=== PATIENT | female | born 1990 | race Caucasian/White ===

== ENCOUNTER → 2018-12-03 | Outpatient (CLI) | payer OTHER | LOC: LAB FS 13:30 | PROVIDERS: ATTEND Family Medicine | DX: O26.851 Spotting complicating pregnancy, first trimester (principal); Z3A.00 Weeks of gestation of pregnancy not specified | CPT/HCPCS: 36415; 84144; 84702 ==

== ENCOUNTER → 2019-03-04 | Outpatient (CLI) | payer OTHER | LOC: LAB FS 14:07 | PROVIDERS: ATTEND Family Medicine | DX: N91.2 Amenorrhea, unspecified (principal) | CPT/HCPCS: 36415; 84702 ==

== ENCOUNTER → 2019-05-31 | Outpatient (CLI) | payer OTHER ==
[2019-05-31 15:32] LABS: HEMATOCRIT 38 % (35-52); HEMOGLOBIN 12.7 G/DL (11.5-16.0); MEAN CORPUSCULAR HEMOGLOBIN 28 PG (25-34); WHITE BLOOD COUNT 12.8 10^3/uL (4.3-11.0)
[2019-05-31 15:33] LABS: MEAN CORPUSCULAR HGB CONC 33 G/DL (32-36); MEAN CORPUSCULAR VOLUME 86 FL (80-99); MEAN PLATELET VOLUME 9.4 FL (7.4-10.4); NEUTROPHILS % (AUTO) 69 % (42-75); PLATELET COUNT 322 10^3/uL (130-400); RED CELL DISTRIBUTION WIDTH 12.9 % (10.0-14.5)
[2019-05-31 15:34] LABS: BASOPHILS # (AUTO) 0.1 10^3/uL (0.0-0.1); BASOPHILS % (AUTO) 0 % (0-10); EOSINOPHILS # (AUTO) 0.2 10^3/uL (0.0-0.3); EOSINOPHILS % (AUTO) 2 % (0-10); LYMPHOCYTES # (AUTO) 2.7 X 10^3 (1.0-4.0); LYMPHOCYTES % (AUTO) 21 % (12-44); MONOCYTES % (AUTO) 8 % (0-12); NEUTROPHILS # (AUTO) 8.8 X 10^3 (1.8-7.8)
== END ==
LOC: LAB FS 15:07
PROVIDERS: ATTEND Family Medicine
DX: Z34.80 Encounter for supervision of other normal pregnancy, unspecified trimester (principal)
CPT/HCPCS: 36415; 80055; 86703; 87088

== ENCOUNTER → 2019-07-01 | Outpatient (CLI) | payer OTHER | LOC: LAB FS 08:10 | PROVIDERS: ATTEND Family Medicine | DX: Z34.80 Encounter for supervision of other normal pregnancy, unspecified trimester (principal) | CPT/HCPCS: 87491; 87591 ==

== ENCOUNTER → 2019-07-26 | Outpatient (CLI) | payer OTHER | LOC: LAB FS 12:59 | PROVIDERS: ATTEND Family Medicine | DX: Z34.82 Encounter for supervision of other normal pregnancy, second trimester (principal); Z3A.00 Weeks of gestation of pregnancy not specified | CPT/HCPCS: 36415; 82105; 84702; 86336 ==

== ENCOUNTER → 2019-10-17 | Outpatient (CLI) | payer OTHER ==
[2019-10-17 10:48] LABS: HEMATOCRIT 35 % (35-52); HEMOGLOBIN 11.5 G/DL (11.5-16.0); MEAN CORPUSCULAR HEMOGLOBIN 29 PG (25-34); MEAN CORPUSCULAR HGB CONC 33 G/DL (32-36); MEAN CORPUSCULAR VOLUME 88 FL (80-99); MEAN PLATELET VOLUME 9.9 FL (7.4-10.4); PLATELET COUNT 306 10^3/uL (130-400); RED CELL DISTRIBUTION WIDTH 13.7 % (10.0-14.5)
[2019-10-17 10:49] LABS: BASOPHILS # (AUTO) 0.1 10^3/uL (0.0-0.1); BASOPHILS % (AUTO) 1 % (0-10); EOSINOPHILS # (AUTO) 0.2 10^3/uL (0.0-0.3); EOSINOPHILS % (AUTO) 1 % (0-10); LYMPHOCYTES # (AUTO) 1.6 X 10^3 (1.0-4.0); LYMPHOCYTES % (AUTO) 14 % (12-44); MONOCYTES # (AUTO) 0.7 X 10^3 (0.0-1.0); MONOCYTES % (AUTO) 6 % (0-12); NEUTROPHILS # (AUTO) 8.6 X 10^3 (1.8-7.8); NEUTROPHILS % (AUTO) 78 % (42-75)
== END ==
LOC: LAB FS 09:02
PROVIDERS: ATTEND Family Medicine
DX: Z34.80 Encounter for supervision of other normal pregnancy, unspecified trimester (principal)
CPT/HCPCS: 36415; 82950; 85025; 86780

== ENCOUNTER 2019-12-30 05:35 | Outpatient (RCR) | payer OTHER ==
[~2019-12-30] VITALS: Ht 154.9 cm; Wt 85.0 kg
== END 2019-12-30 15:46 | disposition home or self-care (01) ==
LOC: PREOP 05:35 → EDSTATUS 10:00 → PREOP 15:46
PROVIDERS: ATTEND Obstetrics & Gynecology
DX: Z01.818 Encounter for other preprocedural examination (principal)

== ENCOUNTER 2020-01-06 07:13 | Inpatient (IN) | payer OTHER ==
[2020-01-06] VITALS (9 sets, daily range): BP systolic 50–120; BP diastolic 53–80
[~2020-01-06] VITALS: Ht 154.9 cm; Wt 85.7 kg
[2020-01-06] MEDS ORDERED: ceFAZolin 2 GM IV Premixed 50 ML IV ONE (07:45)
[2020-01-06] MEDS ORDERED: CITRIC ACID/SOB CIT (BICITRA) 30 ML UDC PO ONE (08:15)
[2020-01-06] MEDS ORDERED: LACTATED RINGERS 1,000 ML IV PRN ×3 (08:15→09:05)
[2020-01-06] MEDS ORDERED: CATHETER FLUSH 10 ML SYR IV PRN (08:15)
[2020-01-06] MEDS ORDERED: METOCLOPRAMIDE INJ 10 MG/2 ML (REGLAN) IV ONE (08:15)
[2020-01-06] MEDS ORDERED: OXYTOCIN PRE-MIX DRIP 500 ML IV SCH (08:22)
--- NOTE | 2020-01-06 08:29 | History & Physical-OB ---
OB - Chief Complaint & HPI Date/Time Date of Admission: Date of Admission: Jan 06, 2020 at 07:13 Date seen by a Provider: Jan 08, 2020 Time Seen by a Provider: 08:40 Chief Complaint/History OB-Reason for Admission/Chief: Section Hx : 3 Hx Para: 1 Expected Date of Delivery: Jan 11, 2020 Gestational Age in Weeks: 39 Gestational Age in Days: 2 Indication for : desires repeat Admission Nurse Assessment Rev: Yes History of Labs O pos Allergies and Home Medications Allergies Coded Allergies: No Known Drug Allergies (Unverified , 12/30/19) Home Medications No Active Prescriptions or Reported Meds Patient Home Medication List Home Medication List Reviewed: Yes OB - History Hx of Present Care: Yes Ultrasounds: Normal mid trimester US Obstetrical Complications: None Medical Complications: None Delivery History Adverse Rxn to Tranfusion: No Patient Past Medical History n/a Social History/Family History Recent Infectious Disease Expo: No Alcohol Use: Denies Use Recreational Drug Use: No OB - Admission Exam Physical Exam Vitals: Vital Signs 01/06/20 01/06/20 07:35 08:09 Temp 37.0 Pulse 115 Resp 16 B/P (MAP) 119/66 (83) Pulse Ox 100 O2 Delivery Room Air HEENT: NCAT Heart: Rhythm Normal Lungs: Clear Abdomen: Gravid Extremities: Normal Reflexes: Normal Heart Rate: 130's Accelerations: Accelerations Present Decelerations: No Decelerations Short Term Variability: Present Warp Dyeing Tender Variability: Average (6-25) Contractions on Admission: 6-10 Minutes Apart Intensity: Mild OB - Assessment/Plan/Diagnosis Assessment Assessment: section Admission Dx 29 yo @ 39 weeks Previous Admission Status: Inpatient Order (span 2 midnights) Reason for Inpatient Admission: Repeat Plan Plan: Section JAX CASE DO Jan 06, 2020 08:29
[2020-01-06] MEDS ORDERED: TETANUS,DIPTH,PERTUSS P/F (BOOSTRIX) 0.5 ML VIAL IM SCH (08:30)
[2020-01-06] MEDS ORDERED: HYDROcodone/APAP 5 MG/325 MG (LORTAB) TAB PO PRN (08:30)
[2020-01-06] MEDS ORDERED: MEASLES,MUMPS,RUBELLA 1 EA INJ SC SCH (08:30)
[2020-01-06] MEDS ORDERED: ONDANSETRON 4 MG/2 ML (SDV) Z0FRAN IVP PRN ×2 (08:30→11:45)
--- NOTE | 2020-01-06 08:30 | Discharge Inst-Women's Service ---
Discharge Inst-Women's Serv Depart Medication/Instructions New, Converted or Re-Newed RX: RX on Chart Final Diagnosis POD 2 RLTCS Problems Reviewed?: Yes Consults/Follow Up Additional Follow Up: Yes Orders/Referrals Dr. William in 7-[address] Ramirez in 6 weeks Activity Activity: Activity as Tolerated Driving Instructions: No Driving for 1 Week NO SMOKING: NO SMOKING Nothing Inside Vagina: No Douching, No [place], No Tampons Diet Discharge Diet: No Restrictions Symptoms to Report to : Bleeding Excessive, Pain Increased, Fever Over 101 Degrees F, Vaginal Bleeding Increase, Questions/Concerns For Any Problems or Questions: Contact Your Physician Skin/Wound Care Infection Signs and Symptoms: Increased Redness, Foul Odor of Wound, Increased Drainage, Skin Itchy or Has a Rash, Increased Swelling, Temperature Above 101 F Operative Area Clean and Dry: Keep Incision Clean/Dry Stitches/[place]/Dermabond: Dermabond, Care of Stitches Bathing Instructions: JAX Rolon DO Jan 06, 2020 08:30
[2020-01-06] MEDS ORDERED: DCS100C PO (08:31)
[2020-01-06] MEDS ORDERED: ACHD5005 PO (08:31)
[2020-01-06] MEDS ORDERED: IBUP-844 PO (08:31)
[2020-01-06 08:48] LABS: BASOPHILS % (AUTO) 1 % (0-10); EOSINOPHILS # (AUTO) 0.1 10^3/uL (0.0-0.3); EOSINOPHILS % (AUTO) 1 % (0-10); HEMATOCRIT 33 % (35-52); HEMOGLOBIN 10.9 g/dL (11.5-16.0); LYMPHOCYTES # (AUTO) 1.5 10^3/uL (1.0-4.0); LYMPHOCYTES % (AUTO) 17 % (12-44); MEAN CORPUSCULAR HEMOGLOBIN 28 pg (25-34); MEAN CORPUSCULAR HGB CONC 33 g/dL (32-36); MEAN CORPUSCULAR VOLUME 87 fL (80-99); MEAN PLATELET VOLUME 10.1 fL (9.0-12.2); MONOCYTES # (AUTO) 0.7 10^3/uL (0.0-1.0); MONOCYTES % (AUTO) 8 % (0-12); NEUTROPHILS # (AUTO) 6.4 10^3/uL (1.8-7.8); NEUTROPHILS % (AUTO) 73 % (42-75); PLATELET COUNT 226 10^3/uL (130-400); WHITE BLOOD COUNT 8.8 10^3/uL (4.3-11.0)
[2020-01-06] MEDS ORDERED: FAMOTIDINE 20MG/2ML IV (PEPCID) IV ONE (09:15)
[2020-01-06] MEDS ORDERED: FAMOTIDINE 20MG/2ML IV (PEPCID) ONE (09:16)
[2020-01-06] MEDS ORDERED: fentaNYL INJECTION 100 MCG/2 ML AMP ONE (09:49)
[2020-01-06] MEDS ORDERED: ROPIVACAINE 5MG/ML 30ML VIAL ONE (10:32)
[2020-01-06] MEDS ORDERED: PHENYLEPHRINE 100 MCG/ML 10 ML (ANESTHESIA) SYR ONE (10:32)
[2020-01-06] MEDS ORDERED: OXYTOCIN PRE-MIX DRIP 1,000 ML IV ONE (10:42)
[2020-01-06] MEDS ORDERED: KETOROLAC 30 MG/ML VIAL ONE (10:59)
[2020-01-06] MEDS: KETOROLAC 30 MG/ML VIAL IV SCH ×3 (11:00→23:21)
[2020-01-06] MEDS ORDERED: HYDROmorphone 2 MG/ML VIAL (DILAUDID) IV ONE (11:45)
[2020-01-06] MEDS ORDERED: CATHETER FLUSH 10 ML SYR IV SCH (14:00)
[2020-01-06] MEDS ORDERED: ACETAMINOPHEN 500 MG TAB (TYLENOL) ONE (21:35)
[2020-01-06] MEDS: ACETAMINOPHEN 500 MG TAB (TYLENOL) PO PRN (21:38)
--- NOTE | 2020-01-06 22:53 | OPERATIVE REPORT ---
DATE OF SERVICE: PREOPERATIVE DIAGNOSES: 1. A 29-year-old G3, P1 at 39 weeks and 2 days gestation. 2. Previous section. POSTOPERATIVE DIAGNOSES: 1. A 29-year-old G3, P1 at 39 weeks and 2 days gestation. 2. Previous section. PROCEDURE: Repeat low transverse section. SURGEON: Juan Diego Case DO LEAF TINNER: Dr. Bobbi Ramirez who was necessary for manipulation and retraction throughout the procedure. ANESTHESIA: Spinal. ESTIMATED BLOOD LOSS: 600 mL. URINE OUTPUT: 50 mL clear at the end of the procedure. FLUIDS: 1000 mL lactated Ringer's solution. FINDINGS: A live female weighing 7 pounds 11 ounces, Apgars of 9 and 9. Grossly normal appearing uterus, bilateral fallopian tubes and ovaries. SPECIMEN SENT: None. INDICATIONS FOR PROCEDURE: This 29-year-old female is a patient who is consulted to my office for repeat from Dr. Ramirez. She had sought her care with Dr. Ramirez and it was uncomplicated with the exception of needing to proceed with repeat after counseling the patient. In the preoperative visit and in the preoperative area, risks of the procedure was reviewed with the patient in detail including risks of bleeding, infection, damage to surrounding structures including, but not limited to bowel, bladder, ureter, kidneys, possible need for reoperation, postoperative complications that may occur, risk from anesthesia, recovery timeframe and even . After everything was discussed with the patient in detail, consent was obtained in the preoperative area, the patient was taken to the operating room. OPERATIVE REPORT IN DETAIL: Once in the operating room, spinal anesthesia was found to be adequate, she was placed in the supine position with leftward tilt and prepped and draped in normal sterile fashion. After that a timeout was performed and anesthesia was tested. Once anesthesia was found to be adequate, a Pfannenstiel skin incision was made through the previously existing scar using knife and carried down to the underlying fascia using Bovie cautery. The fascial incision extended laterally using Bovie cautery. Superior aspect of fascial incision was then grasped with Davis clamps, tented up and dissected off the underlying rectus muscles. The inferior aspect of fascial incision was then grasped with Davis clamps, tented up and dissected off the underlying rectus muscles. Rectus muscle was then dissected down the midline, which was close to the peritoneum, which I entered bluntly and extended using blunt traction. Alejo ring retractor was placed in the peritoneal incision, which offers excellent lateral sidewall retraction. I identified the lower uterine segment, which was found to be thinned out and make a low transverse incision through the vesicouterine peritoneum and bluntly dissect this off of the lower uterine segment creating a bladder flap. I then proceeded with myotomy until membranes were visualized, at which point, I extended the uterine incision laterally and superiorly using bandage scissors. Amniotomy was performed using Allis clamp. Clear fluid was noted. Infant was found in vertex presentation. With gentle fundal pressure, the infant's head was delivered through the incision where the nares and oropharynx were bulb suctioned and nuchal cord was reduced x1. Anterior and posterior shoulders were delivered. The was then brought to the operative field where the cord was doubly clamped and cut and was taken off of the operative field by Dr. Ramirez for further attendance. Cord blood was collected, 3-vessel cord with intact placenta was delivered spontaneously thereafter. IV Pitocin was initiated to facilitate uterine contraction. Uterine fundus became firmer with bimanual massage. Uterus was then exteriorized and cleared of all endometrial clots and debris. I then proceeded with closing the uterine incision using 0 Vicryl suture in running locked fashion. Second layer of imbricating 0 Monocryl was placed. Excellent hemostasis was noted after doing this. I then placed the uterus back within the pelvis and copiously irrigated the pelvis using normal saline. Once again, there was no active bleeding noted from any of my dissection planes. I placed Interceed antiadhesive over my low transverse incision. I removed the Alejo ring retractor and proceeded with closing the peritoneum using 3-0 Vicryl suture in running fashion. Rectus muscles were reapproximated using 3-0 Vicryl suture in interrupted fashion. The fascia was reapproximated using 0 Vicryl suture in running fashion and the skin reapproximated using 4-0 Monocryl in a running subcuticular. Dermabond was applied to incision and sterile dressing with adhesive white tape. The patient tolerated the procedure well and sent to recovery in stable condition. Lap and sponge counts were correct at the end of procedure. Instrument counts correct as well. Two grams of Ancef were given preoperatively for infection prophylaxis. Job ID: [id number] DocumentID: [id number] Dictated Date: 01/06/2020 11:22:46 Director Of Engineering Date: 01/06/2020 22:52:58 Dictated By: JUAN DIEGO CASE DO
[2020-01-06] MEDS: DOCUSATE SODIUM 100 MG (COLACE) CAP PO SCH (23:21)
[2020-01-07] MEDS: KETOROLAC 30 MG/ML VIAL IV SCH (05:42)
[2020-01-07 05:43] VITALS: BP 101/52
[2020-01-07 05:50] LABS: BASOPHILS # (AUTO) 0.1 10^3/uL (0.0-0.1); BASOPHILS % (AUTO) 0 % (0-10); EOSINOPHILS # (AUTO) 0.1 10^3/uL (0.0-0.3); EOSINOPHILS % (AUTO) 1 % (0-10); HEMATOCRIT 30 % (35-52); LYMPHOCYTES # (AUTO) 1.9 10^3/uL (1.0-4.0); LYMPHOCYTES % (AUTO) 14 % (12-44); MEAN CORPUSCULAR HEMOGLOBIN 29 pg (25-34); MEAN CORPUSCULAR HGB CONC 33 g/dL (32-36); MEAN CORPUSCULAR VOLUME 86 fL (80-99); MEAN PLATELET VOLUME 10.4 fL (9.0-12.2); MONOCYTES % (AUTO) 8 % (0-12); NEUTROPHILS # (AUTO) 9.9 10^3/uL (1.8-7.8); NEUTROPHILS % (AUTO) 76 % (42-75); PLATELET COUNT 218 10^3/uL (130-400)
--- NOTE | 2020-01-07 07:17 | Postpartum Progress Note ---
Note Note Day # 1 Subjective: Patient is without complaints. Ambulating, voiding. Tolerating a regular diet without nausea or vomiting. Normal lochia. Pain is well controlled with oral pain medications. Objective: Physical Exam: General - Alert and oriented, no apparent distress Abdomen - Soft, appropriately tender to palpation, non-distended, fundus firm at umbilicus Extremities - no edema, negative Tino's bilaterally Incision- c/d/i Assessment: POD 1 RLTCS Acute on chronic blood loss anemia of Plan: Routine care. Encourage breast feeding. Encourage ambulation. Ferrous sulfate supplementation. Plan for discharge tomorrow Vitals - Labs Vital Signs - I&O Vital Signs Date Time Temp Pulse Resp B/P (MAP) Pulse Ox O2 Delivery O2 Flow Rate FiO2 01/07/20 05:43 36.8 81 16 101/52 (68) 97 Room Air 01/06/20 23:20 37.0 90 16 50/59 (56) 95 Room Air 01/06/20 16:30 37.2 86 16 114/59 (77) 96 Room Air 01/06/20 12:16 36 16 120/80 (93) 98 Room Air 01/06/20 12:16 Room Air 01/06/20 12:00 36 16 105/56 (72) 98 Room Air 01/06/20 12:00 Room Air 01/06/20 11:45 36 16 112/69 (83) 97 Room Air 01/06/20 11:45 Room Air 01/06/20 11:30 Room Air 01/06/20 11:30 36 16 88/65 (73) 97 Room Air 01/06/20 11:15 Room Air 01/06/20 11:15 36 16 95/53 (67) 98 Room Air 01/06/20 08:09 37.0 115 16 100 Room Air 01/06/20 07:35 37.0 115 16 119/66 (83) 100 Room Air I & O 01/07/20 07:00 Intake Total 3250 ml Output Total 1700 ml Balance 1550 ml Labs Laboratory Tests 01/06/20 08:39: White Blood Count 8.8, Red Blood Count 3.86, Hemoglobin 10.9L, Hematocrit 33L, Mean Corpuscular Volume 87, Mean Corpuscular Hemoglobin 28, Mean Corpuscular Hemoglobin Concent 33, Red Cell Distribution Width 14.3, Platelet Count 226, Mean Platelet Volume 10.1, Immature Granulocyte % (Auto) 1, Neutrophils (%) (Auto) 73, Lymphocytes (%) (Auto) 17, Monocytes (%) (Auto) 8, Eosinophils (%) (Auto) 1, Basophils (%) (Auto) 1, Neutrophils # (Auto) 6.4, Lymphocytes # (Auto) 1.5, Monocytes # (Auto) 0.7, Eosinophils # (Auto) 0.1, Basophils # (Auto) 0.0, Immature Granulocyte # (Auto) 0.1 01/07/20 05:37: White Blood Count 13.0H, Red Blood Count 3.49L, Hemoglobin 10.0L, Hematocrit 30L , Mean Corpuscular Volume 86, Mean Corpuscular Hemoglobin 29, Mean Corpuscular Hemoglobin Concent 33, Red Cell Distribution Width 14.0, Platelet Count 218, Mean Platelet Volume 10.4, Immature Granulocyte % (Auto) 1, Neutrophils (%) (Auto) 76H, Lymphocytes (%) (Auto) 14, Monocytes (%) (Auto) 8, Eosinophils (%) (Auto) 1, Basophils (%) (Auto) 0, Neutrophils # (Auto) 9.9H, Lymphocytes # (Auto) 1.9, Monocytes # (Auto) 1.0, Eosinophils # (Auto) 0.1, Basophils # (Auto) 0.1, Immature Granulocyte # (Auto) 0.1 JAX CASE DO Jan 07, 2020 07:17
--- NOTE | 2020-01-07 07:57 | Anesthesia-Regional Post-Op ---
Regional Patient Condition Mental Status: Alert, Oriented x3 Circulation: Same as Pre-Op Headache: Absent Sensation: Full Recovery Motor Block: Absent Post Op Complications Complications None Follow Up Care/Instructions Patient Instructions None needed. Anesthesia/Patient Condition Patient is doing well, no complaints, stable vital signs, no apparent adverse anesthesia problems. No complications reported per nursing. YAMILA PERKINS CRNA Jan 07, 2020 07:56
[2020-01-07 08:00] VITALS: BP 108/59
--- NOTE | 2020-01-07 08:00 | NUR ---
A.M. ASSESSMENT COMPLETED. VSS. CARING FOR IN ROOM. GOOD INTERACTION NOTED.
[2020-01-07] MEDS ORDERED: IBUPROFEN 600 MG (MOTRIN) TAB PO SCH (08:30)
[2020-01-07] MEDS: DOCUSATE SODIUM 100 MG (COLACE) CAP PO SCH ×2 (08:51→19:19)
--- NOTE | 2020-01-07 11:00 | NUR ---
HAS BEEN IN TO ASSIST PRN WITH FEEDINGS.
[2020-01-07 12:10] VITALS: BP 115/56
[2020-01-07] MEDS: IBUPROFEN 600 MG (MOTRIN) TAB PO SCH ×2 (12:16→19:19)
[2020-01-07] MEDS: ACETAMINOPHEN 500 MG TAB (TYLENOL) PO PRN ×2 (12:17→19:47)
--- NOTE | 2020-01-07 13:00 | NUR ---
AMBULATING IN THE WEAVER WITH S.O. PUSHING IN CRIB. MOVES WELL.
[2020-01-07 16:45] VITALS: BP 103/60
--- NOTE | 2020-01-07 18:15 | NUR ---
EATING DINNER. PT STATES SHE HAD ANOTHER BM THIS SHIFT. CONTINUES TO CARE FOR INFANT IN ROOM.
[2020-01-07 19:19] VITALS: BP 109/57
[2020-01-08] MEDS: IBUPROFEN 600 MG (MOTRIN) TAB PO SCH ×2 (02:35→09:06)
--- NOTE | 2020-01-08 08:10 | NUR ---
Dr William to see patient and review plan of care . New orders for discharge received.
--- NOTE | 2020-01-08 08:14 | Postpartum Progress Note ---
Note Note Day # 2 Subjective: Patient is without complaints. Ambulating, voiding. Tolerating a regular diet without nausea or vomiting. Normal lochia. Pain is well controlled with oral pain medications. Objective: Physical Exam: General - Alert and oriented, no apparent distress Abdomen - Soft, appropriately tender to palpation, non-distended, fundus firm at umbilicus Extremities - no edema, negative Tino's bilaterally Incision- c/d/i Assessment: POD 2 RLTCS Plan: Routine care. Encourage breast feeding. Encourage ambulation. Ferrous sulfate supplementation. Plan for discharge today Vitals - Labs Vital Signs - I&O Vital Signs Date Time Temp Pulse Resp B/P (MAP) Pulse Ox O2 Delivery O2 Flow Rate FiO2 01/07/20 19:19 36.8 80 18 109/57 (74) 98 Room Air 01/07/20 16:45 36.4 82 18 103/60 (74) 97 Room Air 01/07/20 12:10 37.0 90 18 115/56 (75) 98 Room Air l I & O 01/08/20 07:00 Intake Total 2540 ml Output Total 1400 ml Balance 1140 ml JAX CASE DO Jan 08, 2020 08:14
[2020-01-08 09:05] VITALS: BP 121/63
[2020-01-08] MEDS: DOCUSATE SODIUM 100 MG (COLACE) CAP PO SCH (09:06)
--- NOTE | 2020-01-08 11:20 | NUR ---
Discharge instructions explained, signed and copy to patient. pt verbalized understanding of instructions and denied questions. prescriptions given to pt. and pt verbalized understanding of medications.
[2020-01-08 13:05] VITALS: BP 121/63
--- NOTE | 2020-01-08 13:05 | NUR ---
Discharged to home. AMbulates self downstairs accompanied by s.o. and staff. To private vehicle with belongings in hand.
== END 2020-01-08 13:05 | disposition home or self-care (01) | DRG 787 ==
LOC: LDRP 07:13
PROVIDERS: ADMIT Obstetrics & Gynecology; ATTEND Obstetrics & Gynecology
PROC: 10D00Z1 Extraction of Products of Conception, Low, Open Approach (ICD-10-PCS; principal; 2020-01-06 10:12)
DX: O34.211 Maternal care for low transverse scar from previous cesarean delivery (principal); D62 Acute posthemorrhagic anemia; O90.81 Anemia of the puerperium; Z37.0 Single live birth; Z3A.39 39 weeks gestation of pregnancy
CPT/HCPCS: 36415; 85025; 86850; 86900; 86901; 94664

== ENCOUNTER → 2021-08-10 | Outpatient (CLI) | payer OTHER ==
[~2021-08-10] MED LIST: ACHD5005 PO; DOCU-239 PO; IBUP-844 PO
== END ==
LOC: LABNPT 16:31
PROVIDERS: ATTEND Family Medicine
DX: Z34.93 Encounter for supervision of normal pregnancy, unspecified, third trimester (principal); Z3A.35 35 weeks gestation of pregnancy
CPT/HCPCS: 87081

== ENCOUNTER 2021-08-30 05:32 | Outpatient (CLI) | payer OTHER ==
[~2021-08-30] VITALS: Ht 154.9 cm; Wt 79.5 kg
== END 2021-08-31 11:34 | disposition home or self-care (01) ==
LOC: PREOP 05:32
PROVIDERS: ATTEND Obstetrics & Gynecology
DX: Z01.818 Encounter for other preprocedural examination (principal)

== ENCOUNTER 2021-09-06 05:30 | Inpatient (IN) | payer OTHER ==
[~2021-09-06] VITALS: Ht 154.9 cm; Wt 80.2 kg
[2021-09-06] VITALS (13 sets, daily range): BP systolic 89–112; BP diastolic 37–63
[2021-09-06] MEDS ORDERED: CITRIC ACID/SOB CIT (BICITRA) 30 ML UDC PO ONE (05:45)
[2021-09-06] MEDS ORDERED: ceFAZolin 2 GM IV Premixed 50 ML IV ONE (05:45)
[2021-09-06] MEDS ORDERED: FAMOTIDINE 20MG/2ML IV (PEPCID) IV ONE (05:45)
[2021-09-06] MEDS ORDERED: METOCLOPRAMIDE INJ 10 MG/2 ML (REGLAN) IV ONE (05:45)
[2021-09-06] MEDS ORDERED: LACTATED RINGERS 1,000 ML IV PRN ×2 (05:45)
[2021-09-06 06:11] LABS: BASOPHILS % (AUTO) 0 % (0-10); EOSINOPHILS # (AUTO) 0.1 10^3/uL (0.0-0.3); EOSINOPHILS % (AUTO) 1 % (0-10); HEMATOCRIT 36 % (35-52); HEMOGLOBIN 11.9 g/dL (11.5-16.0); LYMPHOCYTES # (AUTO) 2.1 10^3/uL (1.0-4.0); LYMPHOCYTES % (AUTO) 20 % (12-44); MEAN CORPUSCULAR HEMOGLOBIN 29 pg (25-34); MEAN CORPUSCULAR HGB CONC 33 g/dL (32-36); MEAN CORPUSCULAR VOLUME 87 fL (80-99); MEAN PLATELET VOLUME 10.3 fL (9.0-12.2); MONOCYTES # (AUTO) 0.9 10^3/uL (0.0-1.0); MONOCYTES % (AUTO) 8 % (0-12); NEUTROPHILS # (AUTO) 7.4 10^3/uL (1.8-7.8); NEUTROPHILS % (AUTO) 69 % (42-75); PLATELET COUNT 237 10^3/uL (130-400); WHITE BLOOD COUNT 10.7 10^3/uL (4.3-11.0)
[2021-09-06] MEDS ORDERED: fentaNYL INJ 100 MCG/2 ML AMP ONE (07:01)
[2021-09-06] MEDS ORDERED: OXYTOCIN PRE-MIX DRIP 500 ML IV ONE ×2 (07:02→07:46)
[2021-09-06] MEDS ORDERED: ROPIVACAINE 5MG/ML 30ML VIAL ONE (07:11)
--- NOTE | 2021-09-06 07:17 | History & Physical-OB ---
OB - Chief Complaint & HPI Date/Time Date of Admission: Date of Admission: Sep 06, 2021 at 05:30 Date seen by a Provider: Sep 06, 2021 Time Seen by a Provider: 07:05 Chief Complaint/History OB-Reason for Admission/Chief: Section Expected Date of Delivery: Sep 11, 2021 Gestational Age in Weeks: 39 Gestational Age in Days: 2 Indication for : desires repeat Admission Nurse Assessment Rev: Yes History of Labs O pos Antibody neg RI RPR NR HBsAg NR HIV NR GC neg GBS neg Allergies and Home Medications Allergies Coded Allergies: No Known Drug Allergies (Unverified , 12/30/19) Patient Home Medication List Home Medication List Reviewed: Yes No Active Prescriptions or Reported Meds OB - History Hx of Present Care: Yes Ultrasounds: Normal mid trimester US Obstetrical Complications: None Medical Complications: None Delivery History Adverse Rxn to Tranfusion: No Patient Past Medical History n/a OB - Admission Exam Physical Exam Vitals: Vital Signs 09/06/21 06:00 Temp 37.0 Pulse 99 Resp 18 B/P (MAP) 104/63 (77) Pulse Ox 98 O2 Delivery Room Air HEENT: NCAT Heart: Rhythm Normal Lungs: Clear Abdomen: Gravid Extremities: Normal Reflexes: Normal Heart Rate: 130's Accelerations: Accelerations Present Decelerations: No Decelerations Short Term Variability: Present Ruffling Machine Operator Variability: Average (6-25) Contractions on Admission: >10 Minutes Apart Intensity: Mild Labs Laboratory Tests Test 09/06/21 05:50 Range/Units White Blood Count 10.7 4.3-11.0 10^3/uL Red Blood Count 4.17 3.80-5.11 10^6/uL Hemoglobin 11.9 11.5-16.0 g/dL Hematocrit 36 35-52 % Mean Corpuscular Volume 87 80-99 fL Mean Corpuscular Hemoglobin 29 25-34 pg Mean Corpuscular Hemoglobin Concent 33 32-36 g/dL Red Cell Distribution Width 13.9 10.0-14.5 % Platelet Count 237 130-400 10^3/uL Mean Platelet Volume 10.3 9.0-12.2 fL Immature Granulocyte % (Auto) 1 % Neutrophils (%) (Auto) 69 42-75 % Lymphocytes (%) (Auto) 20 12-44 % Monocytes (%) (Auto) 8 0-12 % Eosinophils (%) (Auto) 1 0-10 % Basophils (%) (Auto) 0 0-10 % Neutrophils # (Auto) 7.4 1.8-7.8 10^3/uL Lymphocytes # (Auto) 2.1 1.0-4.0 10^3/uL Monocytes # (Auto) 0.9 0.0-1.0 10^3/uL Eosinophils # (Auto) 0.1 0.0-0.3 10^3/uL Basophils # (Auto) 0.0 0.0-0.1 10^3/uL Immature Granulocyte # (Auto) 0.1 0.0-0.1 10^3/uL OB - Assessment/Plan/Diagnosis Assessment Assessment: section Admission Dx 31 yo @ 39.2 Previous GBS neg Admission Status: Inpatient Order (span 2 midnights) Reason for Inpatient Admission: RLTCS at 39 weeks Plan Plan: Section JAX CASE DO Sep 06, 2021 07:16
[2021-09-06] MEDS ORDERED: NALOXONE 0.4 MG/ML 1 ML (NARCAN) VIAL IV PRN (07:30)
[2021-09-06] MEDS ORDERED: ONDANSETRON 4 MG/2 ML (SDV) Z0FRAN IVP PRN (07:30)
[2021-09-06] MEDS ORDERED: HYDROcodone/APAP 5 MG/325 MG (LORTAB) TAB PO PRN (07:30)
[2021-09-06] MEDS ORDERED: TETANUS,DIPTH,PERTUSS P/F (BOOSTRIX) 0.5 ML VIAL IM SCH (07:30)
[2021-09-06] MEDS ORDERED: MEASLES,MUMPS,RUBELLA 1 EA INJ SC SCH (07:30)
[2021-09-06] MEDS ORDERED: PHENYLEPHRINE 100 MCG/ML 10 ML (ANESTHESIA) SYR ONE (07:43)
[2021-09-06] MEDS ORDERED: KETOROLAC 30 MG/ML VIAL ONE (07:53)
[2021-09-06] MEDS: OXYTOCIN PRE-MIX DRIP 500 ML IV SCH ×2 (08:45→15:13)
--- NOTE | 2021-09-06 09:30 | OPERATIVE REPORT ---
DATE OF SERVICE: PREOPERATIVE DIAGNOSES: 1. A 31-year-old G3, P2 at 39 weeks gestation. 2. Previous section x2. POSTOPERATIVE DIAGNOSES: 1. A 31-year-old G3, P2 at 39 weeks gestation. 2. Previous section x2. PROCEDURE: Repeat low transverse section. SURGEON: Juan Diego Case DO FLOOR LAYER TILE: Malathi Ward DNP, was necessary for manipulation and retraction throughout the procedure. ANESTHESIA: Spinal. ESTIMATED BLOOD LOSS: 600 mL. URINE OUTPUT: 100 mL clear at the end of procedure. FLUIDS: 800 mL lactated Ringer's solution. FINDINGS: A live male infant weighing 7 pounds 11 ounces, Apgars of 8 and 9. Grossly normal appearing uterus, bilateral fallopian tubes and ovaries. SPECIMEN SENT: None. INDICATIONS FOR PROCEDURE: This 31-year-old female is a patient who had sought care with Dr. Ramirez in [place]. She was consulted in my office for repeat at approximately 35 weeks, at which point we set up her delivery at 39 weeks, she had not had any complications with this . Risks of procedure were reviewed in the preoperative area and her preoperative consultation including risk of bleeding, infection, damage to surrounding structures including, but not limited to bowel, bladder, ureter, kidneys, possible need for reoperation, postoperative complications that may occur, risk from anesthesia, recovery timeframe and even . After everything was discussed with the patient in detail, consent was obtained in the preoperative area and the patient was taken to the operating room. OPERATIVE REPORT IN DETAIL: Once in the operating room, spinal analgesia was found to be adequate. She was placed in supine position with leftward tilt, prepped in normal sterile fashion. A timeout was performed, and anesthesia was tested. I then make a Pfannenstiel skin incision with a knife and carried down to underlying fascia using Bovie cautery and superior aspect of fascial incision was then grasped with Davis clamps, tented up and dissected off the underlying rectus muscles. The inferior aspect of the fascial incision was then grasped with Davis clamps, tented up and dissected off the underlying rectus muscles. Rectus muscles were dissected down the midline using sharp dissection, which exposed the peritoneum, which I entered bluntly and extended using blunt traction. Alejo ring retractor was placed in the peritoneal incision, which offers excellent lateral sidewall retraction. I identified the lower uterine segment, which was found to be thinned out and make a low transverse incision to the vesicouterine peritoneum and bluntly dissected off the lower uterine segment, creating a bladder flap. I then proceeded with my myotomy until membranes were visualized, at which point I extended the uterine incision laterally and superiorly using bandage scissors. Amniotomy was performed using Allis clamp. Clear fluid was noted. The was found in vertex presentation. With gentle fundal pressure, the 's head was elevated through the incision where it delivered through the incision, the nares and oropharynx were bulb suctioned and nuchal cord was reduced x1. Anterior and posterior shoulders were delivered. Infant was then brought to the operative field with cord was doubly clamped and cut and infant was handed off to waiting nurses in attendance. Cord blood was collected, 3-vessel cord with intact placenta delivered spontaneously thereafter. IV Pitocin was initiated to facilitate uterine contraction. Uterine fundus confirmed by manual massage. The uterus was then exteriorized and cleared of all endometrial clots and debris. I then proceeded with closing the uterine incision using 0 Vicryl suture in a running locked fashion. Second layer of imbricating Monocryl was placed. Excellent hemostasis was noted after doing this. I then placed the uterus back in the pelvis and copiously irrigated the pelvis using normal saline. Once again, there was no active bleeding noted from any of my dissection planes. I placed Interceed antiadhesive over my low transverse incision. I then removed the Alejo ring retractor and proceeded with closing the peritoneum using 3-0 Vicryl suture in a running fashion. Rectus muscles were reapproximated using 3-0 Vicryl suture in interrupted fashion. The fascia was reapproximated using 0 Vicryl suture in running fashion. The subcutaneous tissue is very thin; therefore, I just reapproximated the skin using 4-0 Monocryl in a running subcuticular. Dermabond was applied to incision and sterile dressing with adhesive white tape. The patient tolerated the procedure well and sent to recovery area in stable condition. Lap and sponge counts were correct at the end of procedure. Instrument counts correct as well. Two grams of Ancef given preoperatively for infection prophylaxis. Job ID: [id number] DocumentID: [id number] Dictated Date: 09/06/2021 08:35:18 Sports Attorney Date: 09/06/2021 09:29:58 Dictated By: JUAN DIEGO CASE DO
[2021-09-06] MEDS: DOCUSATE SODIUM 100 MG (COLACE) CAP PO SCH ×2 (11:29→20:12)
[2021-09-06] MEDS: CATHETER FLUSH 10 ML SYR IV SCH ×2 (14:17→20:13)
[2021-09-06] MEDS: KETOROLAC 30 MG/ML VIAL IV SCH ×2 (14:17→20:13)
[2021-09-07] MEDS: KETOROLAC 30 MG/ML VIAL IV SCH ×2 (01:25→07:04)
[2021-09-07] MEDS: CATHETER FLUSH 10 ML SYR IV SCH (01:26)
[2021-09-07 04:15] VITALS: BP 118/56
[2021-09-07 06:32] LABS: BASOPHILS % (AUTO) 0 % (0-10); EOSINOPHILS # (AUTO) 0.2 10^3/uL (0.0-0.3); EOSINOPHILS % (AUTO) 2 % (0-10); HEMATOCRIT 33 % (35-52); HEMOGLOBIN 10.9 g/dL (11.5-16.0); LYMPHOCYTES # (AUTO) 1.3 10^3/uL (1.0-4.0); LYMPHOCYTES % (AUTO) 11 % (12-44); MEAN CORPUSCULAR HEMOGLOBIN 29 pg (25-34); MEAN CORPUSCULAR HGB CONC 33 g/dL (32-36); MEAN CORPUSCULAR VOLUME 87 fL (80-99); MEAN PLATELET VOLUME 10.3 fL (9.0-12.2); MONOCYTES # (AUTO) 1.1 10^3/uL (0.0-1.0); MONOCYTES % (AUTO) 9 % (0-12); NEUTROPHILS # (AUTO) 9.2 10^3/uL (1.8-7.8); NEUTROPHILS % (AUTO) 77 % (42-75); PLATELET COUNT 210 10^3/uL (130-400); WHITE BLOOD COUNT 11.9 10^3/uL (4.3-11.0)
[2021-09-07 09:00] VITALS: BP 106/54
[2021-09-07] MEDS ORDERED: IBUPROFEN 600 MG (MOTRIN) TAB PO SCH ×2 (09:00→12:00)
[2021-09-07] MEDS: DOCUSATE SODIUM 100 MG (COLACE) CAP PO SCH ×2 (09:01→20:35)
[2021-09-07] MEDS: IBUPROFEN 600 MG (MOTRIN) TAB PO SCH ×3 (09:26→20:35)
[2021-09-07] MEDS: SIMETHICONE 80 MG (MYLICON) CHEW PO PRN (10:02)
--- NOTE | 2021-09-07 10:21 | Postpartum Progress Note ---
Note Note Day # 1 Subjective: Patient is without complaints. Ambulating, voiding. Tolerating a regular diet without nausea or vomiting. Normal lochia. Pain is well controlled with oral pain medications. Physical Exam: General - Alert and oriented, no apparent distress Abdomen - Soft, appropriately tender to palpation, non-distended, fundus firm at umbilicus; incision c/d/i Extremities - no edema, negative Tino's bilaterally Assessment: Post- day # 1, status post RLTCS. Recovering well, hemodynamically stable Plan: Routine care. Encourage breast feeding. Encourage ambulation. Ferrous sulfate supplementation. Plan for discharge tomorrow Vitals - Labs Vital Signs - I&O Vital Signs Date Time Temp Pulse Resp B/P (MAP) Pulse Ox O2 Delivery O2 Flow Rate FiO2 09/07/21 09:00 36.3 80 18 106/54 (71) 97 Room Air 09/07/21 04:15 36.2 70 18 118/56 (76) 98 Room Air 09/06/21 23:50 36.2 81 18 101/56 (71) 96 Room Air 09/06/21 20:13 37.0 88 18 108/60 (76) 99 Room Air 09/06/21 18:40 36.5 81 16 97/55 (69) 97 Room Air 09/06/21 14:15 35.9 85 16 112/56 (74) 96 Room Air 09/06/21 10:59 Room Air I & O 09/07/21 07:00 Intake Total 3550 ml Output Total 2900 ml Balance 650 ml Labs Laboratory Tests 09/07/21 06:13: White Blood Count 11.9H, Red Blood Count 3.83, Hemoglobin 10.9L, Hematocrit 33L, Mean Corpuscular Volume 87, Mean Corpuscular Hemoglobin 29, Mean Corpuscular Hemoglobin Concent 33, Red Cell Distribution Width 13.8, Platelet Count 210, Mean Platelet Volume 10.3, Immature Granulocyte % (Auto) 1, Neutrophils (%) (Auto) 77H, Lymphocytes (%) (Auto) 11L, Monocytes (%) (Auto) 9, Eosinophils (%) (Auto) 2, Basophils (%) (Auto) 0, Neutrophils # (Auto) 9.2H, Lymphocytes # (Auto) 1.3, Monocytes # (Auto) 1.1H, Eosinophils # (Auto) 0.2, Basophils # (Auto) 0.0, Immature Granulocyte # (Auto) 0.1 HEIDY HUSSEIN APRN Sep 07, 2021 10:21
--- NOTE | 2021-09-07 11:33 | Anesthesia-Regional Post-Op ---
Regional Patient Condition Mental Status: Alert, Oriented x3 Circulation: Same as Pre-Op Headache: Absent Sensation: Full Recovery Motor Block: Absent Post Op Complications Complications None Follow Up Care/Instructions Patient Instructions None needed. Anesthesia/Patient Condition Patient is doing well, no complaints, stable vital signs, no apparent adverse anesthesia problems. No complications reported per nursing. CAROLYN MAC CRNA Sep 07, 2021 11:33
[2021-09-07 12:30] VITALS: BP 115/60
[2021-09-07 16:25] VITALS: BP 98/55
[2021-09-07 20:35] VITALS: BP 113/59
[2021-09-08 02:37] VITALS: BP 98/52
[2021-09-08] MEDS: IBUPROFEN 600 MG (MOTRIN) TAB PO SCH ×2 (02:37→08:48)
[2021-09-08 08:45] VITALS: BP 111/58
[2021-09-08] MEDS: DOCUSATE SODIUM 100 MG (COLACE) CAP PO SCH (08:49)
[2021-09-08] MEDS: SIMETHICONE 80 MG (MYLICON) CHEW PO PRN (08:49)
--- NOTE | 2021-09-08 09:05 | Postpartum Progress Note ---
Note Note Day # 2 Subjective: Patient is without complaints. Ambulating, voiding. Tolerating a regular diet without nausea or vomiting. Normal lochia. Pain is well controlled with oral pain medications. Objective: Physical Exam: General - Alert and oriented, no apparent distress Abdomen - Soft, appropriately tender to palpation, non-distended, fundus firm at umbilicus Extremities - no edema, negative Tino's bilaterally Assessment: PPD 2 NVD Acute blood loss anemia Plan: Routine care. Encourage breast feeding. Encourage ambulation. Ferrous sulfate supplementation. Plan for discharge today Vitals - Labs Vital Signs - I&O Vital Signs Date Time Temp Pulse Resp B/P (MAP) Pulse Ox O2 Delivery O2 Flow Rate FiO2 09/08/21 08:45 36.4 92 18 111/58 (75) 96 Room Air 09/08/21 02:37 36.2 74 18 98/52 (67) 97 Room Air 09/07/21 20:35 36.4 82 18 113/59 (77) 97 Room Air 09/07/21 16:25 36.4 80 18 98/55 (69) 97 Room Air 09/07/21 12:30 36.5 73 18 115/60 (78) 96 Room Air JAX CASE DO Sep 08, 2021 09:05
--- NOTE | 2021-09-08 09:13 | Discharge Inst-Women's Service ---
Discharge Inst-Women's Serv Depart Medication/Instructions New, Converted or Re-Newed RX: Transmitted to Pharmacy Final Diagnosis POD 2 RLTCS Problems Reviewed?: Yes Consults/Follow Up Additional Follow Up: Yes Orders/Referrals Dr. Case in 7-10 days. Activity Activity: Activity as Tolerated Driving Instructions: No Driving for 1 Week NO SMOKING: NO SMOKING Nothing Inside Vagina: No Douching, No [place], No Tampons Diet Discharge Diet: No Restrictions Symptoms to Report to : Bleeding Excessive, Pain Increased, Fever Over 101 Degrees F, Cramps in Feet or Legs, Questions/Concerns For Any Problems or Questions: Contact Your Physician Skin/Wound Care Infection Signs and Symptoms: Increased Redness, Foul Odor of Wound, Increased Drainage, Skin Itchy or Has a Rash, Increased Swelling, Temperature Above 101 F Operative Area Clean and Dry: Keep Incision Clean/Dry JAX CASE DO Sep 08, 2021 09:13
[2021-09-08] MEDS ORDERED: ACHD5005 PO (09:43)
[2021-09-08] MEDS ORDERED: IBUP-844 PO (09:43)
[2021-09-08] MEDS ORDERED: DOCU100C37 PO (09:43)
[2021-09-08 12:20] VITALS: BP 111/58
== END 2021-09-08 12:20 | disposition home or self-care (01) | DRG 787 ==
LOC: LDRP 05:30
PROVIDERS: ADMIT Obstetrics & Gynecology; ATTEND Obstetrics & Gynecology
PROC: 10D00Z1 Extraction of Products of Conception, Low, Open Approach (ICD-10-PCS; principal; 2021-09-06 07:19)
DX: O34.211 Maternal care for low transverse scar from previous cesarean delivery (principal); D62 Acute posthemorrhagic anemia; Z3A.39 39 weeks gestation of pregnancy; Z37.0 Single live birth; O90.81 Anemia of the puerperium; Z28.310 Unvaccinated for COVID-19
CPT/HCPCS: 36415; 85025; 86850; 86900; 86901; 94664